=== PATIENT | female | born 1990 | race African-American/Black ===

== ENCOUNTER 2019-06-19 13:47 | Emergency (ER) | payer BC, MEDICAID ==
[~2019-06-19] VITALS: Ht 160 cm; Wt 75.0 kg
[2019-06-19 14:02] VITALS: BP 106/62
== END 2019-06-19 15:17 | disposition home or self-care (01) ==
LOC: ER 13:47
DX: L03.115 Cellulitis of right lower limb (principal)
CPT/HCPCS: 99283

== ENCOUNTER 2023-04-26 07:24 | Emergency (ER) | payer BC, MEDICAID, OTHER ==
[~2023-04-26] VITALS: Ht 160 cm; Wt 90.7 kg
[2023-04-26 07:28] VITALS: PULSE 96
[2023-04-26 07:36] VITALS: BP 122/83; RESP 16; TEMP 98.5; O2SAT 96
[2023-04-26] MEDS ORDERED: NAPR500T7 MT (08:38)
== END 2023-04-26 09:24 | disposition home or self-care (01) ==
LOC: ER 07:38
DX: S50.02XA Contusion of left elbow, initial encounter (principal); X58.XXXA Exposure to other specified factors, initial encounter; Y93.89 Activity, other specified; Y92.89 Other specified places as the place of occurrence of the external cause; Y99.8 Other external cause status
CPT/HCPCS: 73080; 81025; 99283